=== PATIENT | female | born 2000 | race Caucasian/White ===

== ENCOUNTER 2018-12-07 05:09 | Emergency (ER) | payer OTHER, BC ==
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
[2018-12-07 09:33] VITALS: BP 96/70
== END 2018-12-07 09:33 | disposition home or self-care (01) ==
LOC: ER 05:09
DX: Z04.1 Encounter for examination and observation following transport accident (principal)
CPT/HCPCS: 99284